=== PATIENT | female | born 2000 | race Caucasian/White ===

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

== ENCOUNTER 2019-01-21 00:52 | Emergency (ER) | payer MEDICAID ==
[~2019-01-21] VITALS: Ht 162.6 cm; Wt 69.4 kg
[2019-01-21] MEDS ORDERED: IV NS 0.9% 1,000 ML BAG IV ONE (01:30)
--- NOTE | 2019-01-21 01:30 | NUR ---
PT PRESENTED TO THE ER WITH A C/O LOWER ABD PAIN. PT STATED THAT SHE HAS A HX OF ENDOMETRIOSIS AND HAS NOT STARTED TAKING THE CONTROL THAT HER PMD PRESCRIBED. PT WAS PLACED ON THE MONITOR AND CONTINUOUS PULSE OX.
[2019-01-21] MEDS ORDERED: ONDANSETRON HCL/PF 4 MG/2 ML VIAL ONE (01:47)
[2019-01-21 01:48] LABS: BASOPHILS % (AUTO) 0.4 % (0.0-2.0); EOSINOPHILS % (AUTO) 0.5 % (0.0-6.0); HEMATOCRIT 40 % (33-45); HEMOGLOBIN 13.6 g/dL (11.5-14.8); LYMPHOCYTES # (AUTO) 1.7 /CMM (0.8-4.8); LYMPHOCYTES % (AUTO) 18.8 % (20.0-44.0); MEAN CORPUSCULAR HGB CONC 34 g/dl (31.0-36.0); MEAN CORPUSCULAR VOLUME 85 fL (82-100); MONOCYTES # (AUTO) 0.8 /CMM (0.1-1.30); MONOCYTES % (AUTO) 9.6 % (2.0-12.0); NEUTROPHILS # (AUTO) 6.2 /CMM (1.8-8.9); NEUTROPHILS % (AUTO) 70.7 % (43.0-81.0); PLATELET COUNT (AUTO) 243 /CMM (150-450); RED BLOOD CELL COUNT(AUTO) 4.66 MIL/uL (4.0-5.2); WHITE BLOOD COUNT (AUTO) 8.8 K/uL (4.3-11.0)
[2019-01-21] MEDS ORDERED: MORPHINE SULFATE INJ 4 MG/ML DISP.SYRIN ONE (01:48)
[2019-01-21 01:53] LABS: CALCIUM, SERUM 9.1 mg/dL (8.5-10.1); CREATININE 0.7 mg/dL (0.6-1.3); POTASSIUM 3.6 mmol/L (3.5-5.1)
[2019-01-21 01:53] LABS: APPEARANCE,URINE Clear (CLEAR); BILIRUBIN,URINE SMALL (NEGATIVE); BLOOD, URINE Moderate Ery/uL (NEGATIVE); COLOR,URINE Yellow (YELLOW); KETONES,URINE 80 (NEGATIVE); LEUKOCYTE ESTERASE ,URINE Negative (NEGATIVE); NITRITE, URINE Negative (NEGATIVE); PROTEIN,URINE 30 mg/dl (NEGATIVE); UGLUCOSE Negative (NEGATIVE)
[2019-01-21] MEDS ORDERED: MORPHINE SULFATE INJ 10 MG/ML DISP.SYRIN IV ONE (02:00)
[2019-01-21] MEDS ORDERED: ONDANSETRON HCL/PF - ER 4 MG/2 ML VIAL IV ONE (02:00)
[2019-01-21 02:08] LABS: BACTERIA,URINE Few /HPF (None Seen); MUCUS,URINE Few /LPF (None Seen); SQUAMOUS EPITHELIAL CELL,UR Few /HPF (None Seen)
[2019-01-21] MEDS ORDERED: KETOROLAC TROMETHAMINE INJ 30 MG/ML VIAL IV ONE (02:30)
--- NOTE | 2019-01-21 02:59 | NUR ---
DR RAMOS IS AT THE BEDSIDE SPEAKING TO THE PT AND HER FAMILY. IV removed. Catheter intact and site benign. Pressure and 4x4 applied to site. No bleeding noted. Patient discharged to home in stable condition. Written and verbal after care instructions given. Patient verbalizes understanding of instruction AND RX. PT AMBULATED OUT WITH A STEADY GAIT. VSS. NAD NOTED.
[2019-01-21 03:33] VITALS: BP 142/98
== END 2019-01-21 02:59 | disposition home or self-care (01) ==
LOC: ER 00:54
DX: N80.9 Endometriosis, unspecified (principal)
CPT/HCPCS: 36415; 80048; 81001; 84703; 85025; 87086; 96374; 96375; 99283; J2270; J2405; J7030; 81000-TC

== ENCOUNTER 2019-02-09 22:19 | Emergency (ER) | payer MEDICAID ==
[~2019-02-09] VITALS: Ht 162.6 cm; Wt 63.5 kg
--- NOTE | 2019-02-09 23:10 | NUR ---
URINE COLLECTED AND SENT TO LAB
[2019-02-09] MEDS ORDERED: KETOROLAC TROMETHAMINE INJ 30 MG/ML VIAL ONE (23:25)
[2019-02-09] MEDS ORDERED: IV NS 0.9% 1,000 ML BAG IV ONE (23:30)
[2019-02-09] MEDS ORDERED: KETOROLAC TROMETHAMINE INJ 30 MG/ML VIAL IV ONE (23:30)
--- NOTE | 2019-02-09 23:34 | NUR ---
BIBS FROM HOME C/C LOWER ABD PAIN SINCE AM, RECENTLY DIAGNOSED W/ ENDOMETRIOSIS. [id number]
[2019-02-09 23:35] LABS: BASOPHILS % (AUTO) 0.4 % (0.0-2.0); EOSINOPHILS % (AUTO) 0.2 % (0.0-6.0); HEMATOCRIT 41 % (33-45); LYMPHOCYTES % (AUTO) 10.5 % (20.0-44.0); MEAN CORPUSCULAR HGB CONC 34 g/dl (31.0-36.0); MEAN CORPUSCULAR VOLUME 85 fL (82-100); MONOCYTES # (AUTO) 0.9 /CMM (0.1-1.30); MONOCYTES % (AUTO) 8.6 % (2.0-12.0); NEUTROPHILS # (AUTO) 7.9 /CMM (1.8-8.9); NEUTROPHILS % (AUTO) 80.3 % (43.0-81.0); PLATELET COUNT (AUTO) 215 /CMM (150-450); RED BLOOD CELL COUNT(AUTO) 4.88 MIL/uL (4.0-5.2); WHITE BLOOD COUNT (AUTO) 9.9 K/uL (4.3-11.0)
[2019-02-09 23:42] LABS: CALCIUM, SERUM 9.2 mg/dL (8.5-10.1); CREATININE 0.6 mg/dL (0.6-1.3); POTASSIUM 3.7 mmol/L (3.5-5.1)
[2019-02-09 23:45] LABS: APPEARANCE,URINE Clear (CLEAR); BILIRUBIN,URINE SMALL (NEGATIVE); BLOOD, URINE Negative Ery/uL (NEGATIVE); COLOR,URINE Yellow (YELLOW); KETONES,URINE 40 (NEGATIVE); LEUKOCYTE ESTERASE ,URINE Negative (NEGATIVE); NITRITE, URINE Negative (NEGATIVE); PROTEIN,URINE Negative (NEGATIVE); UGLUCOSE Negative (NEGATIVE); UROBILINOGEN,URINE 0.2 EU/dL (0.2)
[2019-02-10 00:10] LABS: BACTERIA,URINE Few /HPF (None Seen); RBC,URINE 0-2 /HPF (0-2)
[2019-02-10 00:11] LABS: SQUAMOUS EPITHELIAL CELL,UR Few /HPF (None Seen)
--- NOTE | 2019-02-10 00:46 | NUR ---
Patient discharged to home in stable condition. Written and verbal after care instructions given. Patient verbalizes understanding of instruction.
[2019-02-10 00:47] VITALS: BP 128/77
== END 2019-02-10 00:48 | disposition home or self-care (01) ==
LOC: ER 22:24
DX: N80.3 Endometriosis of pelvic peritoneum (principal); R10.2 Pelvic and perineal pain; R50.9 Fever, unspecified; R00.0 Tachycardia, unspecified
CPT/HCPCS: 36415; 80048; 81001; 84703; 85025; 96374; 99283; J1885; J7030; 81000-TC

== ENCOUNTER 2019-04-01 19:29 | Emergency (ER) | payer MEDICAID ==
[~2019-04-01] VITALS: Ht 162.6 cm; Wt 68.0 kg
--- NOTE | 2019-04-01 20:10 | NUR ---
BIBSELF C/O PELVIC PAIN X1 DAY. ALSO C/O HEADACHE, NAUSEA, AND DYSURIA. PT AAOX4. RESPIRATIONS EVEN AND UNLABORED. SKIN INTACT. NO ACUTE DISTRESS NOTED AT THIS TIME. WILL CONTINUE TO MONITOR
[2019-04-01] MEDS ORDERED: ONDANSETRON HCL/PF 4 MG/2 ML VIAL ONE (20:28)
[2019-04-01] MEDS ORDERED: MORPHINE SULFATE INJ 4 MG/ML DISP.SYRIN ONE (20:29)
--- NOTE | 2019-04-01 20:41 | NUR ---
IV INITIATED L AC 20G. LABS DRAWN FROM SITE. TECHNOLOGY COORDINATOR AT BEDSIDE FOR COLLECTION. IV INTACT AND PATENT, PLACED ON SALINE LOCK
--- NOTE | 2019-04-01 20:42 | NUR ---
PT AMBULATORY TO RESTROOM
[2019-04-01 20:43] LABS: BASOPHILS % (AUTO) 0.4 % (0.0-2.0); EOSINOPHILS % (AUTO) 0.1 % (0.0-6.0); HEMATOCRIT 42 % (33-45); HEMOGLOBIN 14.4 g/dL (11.5-14.8); LYMPHOCYTES % (AUTO) 8.6 % (20.0-44.0); MEAN CORPUSCULAR HGB CONC 34 g/dl (31.0-36.0); MEAN CORPUSCULAR VOLUME 85 fL (82-100); MONOCYTES % (AUTO) 8.5 % (2.0-12.0); NEUTROPHILS # (AUTO) 9.7 /CMM (1.8-8.9); NEUTROPHILS % (AUTO) 82.4 % (43.0-81.0); PLATELET COUNT (AUTO) 240 /CMM (150-450); RED BLOOD CELL COUNT(AUTO) 4.98 MIL/uL (4.0-5.2); WHITE BLOOD COUNT (AUTO) 11.8 K/uL (4.3-11.0)
--- NOTE | 2019-04-01 20:45 | NUR ---
PT UNABLE TO PROVIDE URINE SAMPLE AT THIS TIME. ER PA AWARE
[2019-04-01] MEDS: IV NS 0.9% 1,000 ML BAG IV ONE (20:46)
[2019-04-01] MEDS: ONDANSETRON HCL/PF 4 MG/2 ML VIAL IVP ONE (20:47)
[2019-04-01] MEDS: MORPHINE SULFATE INJ 2 MG/ML DISP.SYRIN IV ONE (20:49)
[2019-04-01 21:00] LABS: CALCIUM, SERUM 9.5 mg/dL (8.5-10.1); CREATININE 0.7 mg/dL (0.6-1.3); POTASSIUM 3.6 mmol/L (3.5-5.1)
--- NOTE | 2019-04-01 21:38 | NUR ---
PT UNABLE TO PROVIDE URINE SAMPLE AT THIS TIME. ER PA AWARE
[2019-04-01 22:11] LABS: APPEARANCE,URINE SL CLOUDY (CLEAR); BILIRUBIN,URINE 1+ (NEGATIVE); BLOOD, URINE 3+ Ery/uL (NEGATIVE); COLOR,URINE YELLOW (YELLOW); KETONES,URINE 2+ (NEGATIVE); LEUKOCYTE ESTERASE ,URINE NEGATIVE (NEGATIVE); NITRITE, URINE NEGATIVE (NEGATIVE); PH,URINE 5.5 (5.0-8.0); PROTEIN,URINE TRACE mg/dl (NEGATIVE); UGLUCOSE NEGATIVE (NEGATIVE); UROBILINOGEN,URINE 0.2 EU/dL (0.2)
--- NOTE | 2019-04-01 22:18 | NUR ---
PT OK TO DISCHARGE PER DANISH REECE. IV removed. Catheter intact and site benign. Pressure and 4x4 applied to site. No bleeding noted.Patient discharged to home in stable condition. Written and verbal after care instructions given. Patient verbalizes understanding of instruction.Patient is awake and alert to self, day, and place. PT ambulatory with a steady gait
[2019-04-01 22:19] VITALS: BP 124/71
[2019-04-01 22:20] LABS: BACTERIA,URINE None seen /HPF (None Seen); RBC,URINE 0-2 /HPF (0-2); SQUAMOUS EPITHELIAL CELL,UR Moderate /HPF (None Seen); URINE AMORPHOUS URATE Few /HPF (None Seen)
[2019-04-01 22:21] LABS: MUCUS,URINE Moderate /LPF (None Seen)
== END 2019-04-01 22:20 | disposition home or self-care (01) ==
LOC: ER 19:29
DX: N80.9 Endometriosis, unspecified (principal)
CPT/HCPCS: 36415; 80048; 81001; 84703; 85025; 87086; 96374; 96375; 99283; J2270; J2405; J7030; 81000-TC

== ENCOUNTER 2019-06-26 22:56 | Emergency (ER) | payer MEDICAID ==
[~2019-06-26] VITALS: Ht 162.6 cm; Wt 68.0 kg
--- NOTE | 2019-06-26 23:14 | NUR ---
PT PRESENTED TO THE ER WITH A C/O LOWER ABD SHARP PAIN FEMALE. PT STATED THAT SHE HAS A HX OF ENDOMETRIOSIS. URINE SAMPLE OBTAINED AND SENT TO LAB.
[2019-06-26] MEDS ORDERED: KETOROLAC TROMETHAMINE INJ 60 MG/2 ML VIAL IM ONE ×2 (23:21→23:30)
[2019-06-26] MEDS ORDERED: TRAMADOL HCL 50 MG TABLET ONE (23:21)
[2019-06-26] MEDS ORDERED: ONDANSETRON 4 MG TAB.RAPDIS ONE (23:22)
[2019-06-26] MEDS ORDERED: TRAMADOL HCL 50 MG TABLET PO ONE (23:30)
[2019-06-26] MEDS ORDERED: ONDANSETRON 4 MG TAB.RAPDIS SL ONE (23:30)
[2019-06-27] MEDS ORDERED: MORPHINE SULFATE INJ 4 MG/ML DISP.SYRIN ONE (00:09)
--- NOTE | 2019-06-27 00:10 | NUR ---
PT IS C/O ABD PAIN 02/21. PT STATED THAT THE PAIN MEDICATION DID NOT WORK. MD HAS NEW ORDERS.
[2019-06-27] MEDS ORDERED: MORPHINE SULFATE INJ 2 MG/ML DISP.SYRIN IV ONE (00:30)
[2019-06-27] MEDS ORDERED: IV NS 0.9% 1,000 ML BAG IV ONE (00:30)
--- NOTE | 2019-06-27 01:20 | NUR ---
IV removed. Catheter intact and site benign. Pressure and 4x4 applied to site. No bleeding noted. Patient discharged to home in stable condition. Written and verbal after care instructions given. Patient verbalizes understanding of instruction AND RX. PT WAS TOLD NOT TO START THE MEDICATION UNTIL AFTER HER NEXT PERIOD FINISHED. PT AMBULATED OUT WITH A STEADY GAIT. VSS.
[2019-06-27 01:22] VITALS: BP 128/88
== END 2019-06-27 01:20 | disposition home or self-care (01) ==
LOC: ER 22:59
DX: N80.9 Endometriosis, unspecified (principal)
CPT/HCPCS: 96372; 96374; 99283; J1885; J2270; J7030; Q0162

== ENCOUNTER 2019-10-28 23:05 | Emergency (ER) | payer MEDICAID ==
[~2019-10-28] VITALS: Ht 162.6 cm; Wt 68.0 kg
[2019-10-28] MEDS ORDERED: MORPHINE SULFATE INJ 4 MG/ML DISP.SYRIN ONE (23:21)
[2019-10-28] MEDS ORDERED: ONDANSETRON HCL/PF 4 MG/2 ML VIAL ONE (23:21)
--- NOTE | 2019-10-28 23:22 | NUR ---
PATIENT CAME TO ER BED 3 C/O LOWER ABDOMINAL PAIN. PATIENT HAS A HISTORY OF ENDOMETRIOSIS 4x YEARS AGO. PATIENT STATES THAT SHE HAD MISSED HER CONTROL PILL. PATIENT IS CURRENTLY ON HER PERIOD. AAOX4. NO SOB. BREATHING EVENLY AND UNLABORED ON ROOM AIR. CONNECTED TO MONITOR.
--- NOTE | 2019-10-28 23:23 | NUR ---
BLOOD DRAWN AND SENT TO LAB FOR TESTING.
[2019-10-28] MEDS ORDERED: IV NS 0.9% 1,000 ML BAG IV ONE (23:30)
[2019-10-28] MEDS ORDERED: ONDANSETRON HCL/PF 4 MG/2 ML VIAL IVP ONE (23:30)
[2019-10-28] MEDS ORDERED: MORPHINE SULFATE INJ 2 MG/ML DISP.SYRIN IV ONE (23:30)
[2019-10-28 23:32] LABS: BASOPHILS # (AUTO) 0.1 /CMM (0.0-0.2); BASOPHILS % (AUTO) 0.9 % (0.0-2.0); EOSINOPHILS % (AUTO) 0.3 % (0.0-6.0); HEMATOCRIT 43 % (33-45); HEMOGLOBIN 14.8 g/dL (11.5-14.8); LYMPHOCYTES # (AUTO) 1.1 /CMM (0.8-4.8); LYMPHOCYTES % (AUTO) 9.2 % (20.0-44.0); MEAN CORPUSCULAR HGB CONC 34 g/dl (31.0-36.0); MEAN CORPUSCULAR VOLUME 86 fL (82-100); MONOCYTES % (AUTO) 8.3 % (2.0-12.0); NEUTROPHILS # (AUTO) 9.4 /CMM (1.8-8.9); NEUTROPHILS % (AUTO) 81.3 % (43.0-81.0); PLATELET COUNT (AUTO) 218 /CMM (150-450); RED BLOOD CELL COUNT(AUTO) 5.07 MIL/uL (4.0-5.2); WHITE BLOOD COUNT (AUTO) 11.5 K/uL (4.3-11.0)
[2019-10-28 23:39] LABS: CALCIUM, SERUM 9.3 mg/dL (8.5-10.1); CREATININE 0.9 mg/dL (0.6-1.3); POTASSIUM 3.9 mmol/L (3.5-5.1)
[2019-10-29 00:43] VITALS: BP 128/79
--- NOTE | 2019-10-29 00:43 | NUR ---
Patient discharged to home in stable condition. Written and verbal after care instructions given. Patient verbalizes understanding of instruction.
--- NOTE | 2019-10-29 00:43 | NUR ---
IV removed. Catheter intact and site benign. Pressure and 4x4 applied to site. No bleeding noted.
== END 2019-10-29 00:43 | disposition home or self-care (01) ==
LOC: ER 23:09
DX: N80.9 Endometriosis, unspecified (principal)
CPT/HCPCS: 80048; 85025; 96374; 96375; 99284; J2270; J2405; J7030; 36415

== ENCOUNTER 2020-03-01 22:11 | Emergency (ER) | payer MEDICAID ==
[~2020-03-01] VITALS: Ht 162.6 cm; Wt 65.8 kg
[2020-03-01 22:14] VITALS: BP 132/64
--- NOTE | 2020-03-01 22:25 | NUR ---
PATIENT CAME TO ER BED 9 C/O LEFT SHOULDER PAIN RADIATING TO THE LEFT CHEST PAIN SINCE YESTERDAY. PATIENT STATES SHE HAD REACHED FOR SOMETHING YESTERDAY WITH HER LEFT ARM AND HAD STRAINED HER MUSCLE. PATIENT IS AAOX4. NO SOB. BREATHING EVENLY AND UNLABORED ON ROOM AIR. PATIENT CURRENTLY DOES NOT WANT ANY PAIN MEDICATIONS.
--- NOTE | 2020-03-01 23:30 | NUR ---
PATIENT SIGNED WAIVER FORM.
--- NOTE | 2020-03-01 23:51 | NUR ---
XRAY AT BEDSIDE.
== END 2020-03-02 00:10 | disposition home or self-care (01) ==
LOC: ER 22:14
DX: M94.0 Chondrocostal junction syndrome [Tietze] (principal)
CPT/HCPCS: 71045-TC

== ENCOUNTER 2020-03-03 16:26 | Emergency (ER) | payer MEDICAID ==
[~2020-03-03] VITALS: Ht 162.6 cm; Wt 65.8 kg
--- NOTE | 2020-03-03 16:35 | NUR ---
c/o non radiating left sided chest pain, +sharp, denies sob, trauma. Patient a/ox4, breathing even and unlabored, no sob noted. Patient stated she "feels chest pain when she breathes in" but denies pain at this time. Attached to the entry level receptionist. Dr. Mayberry at bedside for eval.
[2020-03-03 17:03] LABS: BASOPHILS % (AUTO) 0.6 % (0.0-2.0); EOSINOPHILS % (AUTO) 0.7 % (0.0-6.0); HEMATOCRIT 42 % (33-45); LYMPHOCYTES # (AUTO) 1.5 /CMM (0.8-4.8); LYMPHOCYTES % (AUTO) 22.3 % (20.0-44.0); MEAN CORPUSCULAR HGB CONC 34 g/dl (31.0-36.0); MEAN CORPUSCULAR VOLUME 87 fL (82-100); MONOCYTES # (AUTO) 0.9 /CMM (0.1-1.30); MONOCYTES % (AUTO) 13.5 % (2.0-12.0); NEUTROPHILS # (AUTO) 4.2 /CMM (1.8-8.9); NEUTROPHILS % (AUTO) 62.9 % (43.0-81.0); PLATELET COUNT (AUTO) 226 /CMM (150-450); WHITE BLOOD COUNT (AUTO) 6.7 K/uL (4.3-11.0)
[2020-03-03 17:12] LABS: CALCIUM, SERUM 9.8 mg/dL (8.5-10.1); CARBON DIOXIDE 26 mmol/L (21-32); CHLORIDE 102 mmol/L (98-107); CREATININE 0.6 mg/dL (0.6-1.3); GLUCOSE 91 mg/dL (74-106); POTASSIUM 3.8 mmol/L (3.5-5.1); SODIUM SERUM 137 mmol/L (136-145); UREA NITROGEN, BLOOD 9 mg/dL (7-18)
--- NOTE | 2020-03-03 17:21 | NUR ---
brought to ct.
[2020-03-03] MEDS ORDERED: IOHEXOL-350 100 ML VIAL IV ONE (17:22)
[2020-03-03] MEDS ORDERED: CT SWABBABLE VALVE TRANS SET 1 EA INFUS.SET MC ONE (17:23)
[2020-03-03] MEDS ORDERED: IV NS 0.9% 250 ML IV ONE (17:23)
[2020-03-03] MEDS: KETOROLAC TROMETHAMINE INJ 30 MG/ML VIAL IV ONE (18:26)
--- NOTE | 2020-03-03 18:26 | NUR ---
Patient a/ox4, breathing even and unlabored, no sob noted, ambulatory with steady gait, denies any complaints at this time. Needs attended. IV removed. Catheter intact and site benign. Pressure and 4x4 applied to site. No bleeding noted. Patient discharged to home in stable condition. Written and verbal after care instructions given. Patient verbalizes understanding of instruction.
[2020-03-03 18:28] VITALS: BP 130/82
== END 2020-03-03 18:29 | disposition home or self-care (01) ==
LOC: ER 16:29
DX: R07.81 Pleurodynia (principal); N80.9 Endometriosis, unspecified; R00.0 Tachycardia, unspecified
CPT/HCPCS: 36415; 71045; 71275; 80048; 84484; 85025; 93005 ×3; 99285; J7050; Q9967

== ENCOUNTER 2022-03-08 20:12 | Emergency (ER) | payer MEDICAID ==
[~2022-03-08] VITALS: Ht 162.6 cm; Wt 65.8 kg
[~2022-03-08 20:12] MED LIST: AMOX-430 PO
[2022-03-08] MEDS ORDERED: MORPHINE SULFATE INJ 2 MG/ML DISP.SYRIN ONE (20:38)
[2022-03-08] MEDS ORDERED: ONDANSETRON 4 MG TAB.RAPDIS ONE (20:38)
--- NOTE | 2022-03-08 20:41 | NUR ---
PATIENT BIBSISTER C/O PELVIC PAIN X 1 NIGHT FELT WORSE TODAY. PATIENT IS A/O X 4, RR EVEN AND UNLABORED NO SOB NOTED. PATIENT TAKEN TO ER BED 16. CONNECTED TO MONITORS.
--- NOTE | 2022-03-08 20:42 | NUR ---
UNABLE TO PROVIDE URINE AT THIS TIME
--- NOTE | 2022-03-08 20:44 | NUR ---
US AT BEDSIDE
[2022-03-08] MEDS ORDERED: ONDANSETRON 4 MG TAB.RAPDIS SL ONE (21:00)
[2022-03-08] MEDS ORDERED: MORPHINE SULFATE INJ 2 MG/ML DISP.SYRIN IM ONE (21:00)
--- NOTE | 2022-03-08 21:13 | NUR ---
20G IV ESTABLISHED RAC. BLOOD DRAWN AND SENT TO LAB.
--- NOTE | 2022-03-08 21:13 | NUR ---
US TECH AT BEDSIDE
[2022-03-08] MEDS ORDERED: DICYCLOMINE HCL INJ 20 MG/2 ML AMPUL IM ONE ×2 (21:14→21:30)
[2022-03-08 21:19] LABS: BASOPHILS % (AUTO) 0.3 % (0.0-2.0); EOSINOPHILS % (AUTO) 0.2 % (0.0-6.0); HEMATOCRIT 40 % (33-45); HEMOGLOBIN 13.6 g/dL (11.5-14.8); LYMPHOCYTES # (AUTO) 1.1 K/uL (0.8-4.8); MEAN CORPUSCULAR HGB CONC 34 g/dl (31.0-36.0); MEAN CORPUSCULAR VOLUME 87 fL (82-100); MONOCYTES # (AUTO) 0.8 K/uL (0.1-1.30); MONOCYTES % (AUTO) 8.2 % (2.0-12.0); NEUTROPHILS # (AUTO) 8.1 K/uL (1.8-8.9); NEUTROPHILS % (AUTO) 80.3 % (43.0-81.0); PLATELET COUNT (AUTO) 228 K/uL (150-450); RED BLOOD CELL COUNT(AUTO) 4.62 MIL/uL (4.0-5.2); WHITE BLOOD COUNT (AUTO) 10.1 K/uL (4.3-11.0)
[2022-03-08 21:36] LABS: CREATININE 0.7 mg/dL (0.6-1.3); POTASSIUM 3.3 mmol/L (3.5-5.1)
[2022-03-08 21:41] LABS: ALBUMIN 3.5 g/dL (3.4-5.0); BILIRUBIN,DIRECT 0.2 mg/dL (0.0-0.2); BILIRUBIN,TOTAL 0.9 mg/dL (0.2-1.0)
--- NOTE | 2022-03-08 21:55 | NUR ---
URINE COLLECTED AND SENT TO LAB
[2022-03-08 22:00] LABS: BILIRUBIN,URINE SMALL (NEGATIVE); COLOR,URINE YELLOW (YELLOW); LEUKOCYTE ESTERASE ,URINE NEGATIVE (NEGATIVE); NITRITE, URINE NEGATIVE (NEGATIVE); PROTEIN,URINE NEGATIVE (NEGATIVE); UGLUCOSE NEGATIVE (NEGATIVE)
[2022-03-08 22:10] LABS: BACTERIA,URINE None seen /HPF (None Seen); RBC,URINE 0-2 /HPF (0-2); WBC,URINE 0-2 /HPF (0-3)
[2022-03-08] MEDS ORDERED: ONDA4TAB5 PO (22:24)
[2022-03-08 23:06] VITALS: BP 132/78
--- NOTE | 2022-03-08 23:06 | NUR ---
Patient discharged to home in stable condition. Written and verbal after care instructions given. Patient verbalizes understanding of instruction.IV removed. Catheter intact and site benign. Pressure and 4x4 applied to site. No bleeding noted. Pt ambulatory with a steady gait
== END 2022-03-08 23:07 | disposition home or self-care (01) ==
LOC: ER 20:12
DX: K52.9 Noninfective gastroenteritis and colitis, unspecified (principal)
CPT/HCPCS: 99284; 76700; 96372 ×2; 76856; 85025; 80048; 83690; 80076; 84703; 81001; 36415; J0500; Q0162; J2270

== ENCOUNTER 2023-12-16 00:37 | Emergency (ER) | payer SELFPAY ==
[~2023-12-16] VITALS: Ht 162.6 cm; Wt 63.5 kg
[~2023-12-16 00:37] MED LIST changes: +ONDA4TAB5 PO
[2023-12-16] MEDS ORDERED: ONDANSETRON 4 MG TAB.RAPDIS SL ONE (01:00)
[2023-12-16] MEDS ORDERED: HYDROMORPHONE 1 MG/1 ML DISP.SYRIN IM ONE (01:00)
[2023-12-16] MEDS ORDERED: HYDROMORPHONE 1 MG/1 ML DISP.SYRIN ONE ×2 (01:11→02:41)
[2023-12-16] MEDS ORDERED: ONDANSETRON HCL/PF 4 MG/2 ML VIAL ONE (01:11)
[2023-12-16 01:24] LABS: BASOPHILS % (AUTO) 0.5 % (0.0-2.0); EOSINOPHILS % (AUTO) 0.3 % (0.0-6.0); HEMATOCRIT 37 % (33-45); HEMOGLOBIN 12.6 g/dL (11.5-14.8); LYMPHOCYTES # (AUTO) 0.8 K/uL (0.8-4.8); LYMPHOCYTES % (AUTO) 7.9 % (20.0-44.0); MEAN CORPUSCULAR HEMOGLOBIN 29 PG (26.0-33.0); MEAN CORPUSCULAR HGB CONC 34 g/dl (31.0-36.0); MEAN CORPUSCULAR VOLUME 86 fL (82-100); MONOCYTES # (AUTO) 0.6 K/uL (0.1-1.30); MONOCYTES % (AUTO) 6.2 % (2.0-12.0); NEUTROPHILS # (AUTO) 8.2 K/uL (1.8-8.9); NEUTROPHILS % (AUTO) 85.1 % (43.0-81.0); PLATELET COUNT (AUTO) 241 K/uL (150-450); RED BLOOD CELL COUNT(AUTO) 4.36 MIL/uL (4.0-5.2); WHITE BLOOD COUNT (AUTO) 9.6 K/uL (4.3-11.0)
[2023-12-16] MEDS: ONDANSETRON HCL/PF - ER 4 MG/2 ML VIAL IV ONE (01:30)
[2023-12-16 01:31] LABS: CALCIUM, SERUM 9.8 mg/dL (8.5-10.1); CREATININE 0.6 mg/dL (0.6-1.3); POTASSIUM 3.3 mmol/L (3.5-5.1)
[2023-12-16] MEDS: HYDROMORPHONE 1 MG/1 ML DISP.SYRIN IV ONE ×2 (01:31→02:48)
[2023-12-16] MEDS ORDERED: HYDR-3980 PO (04:39)
[2023-12-16] MEDS ORDERED: ONDA4TAB11 PO (04:39)
[2023-12-16 05:01] VITALS: BP 138/104; TEMP 98.4; O2SAT 97
== END 2023-12-16 05:02 | disposition home or self-care (01) ==
LOC: ER 00:40
DX: R10.2 Pelvic and perineal pain (principal); N80.9 Endometriosis, unspecified
CPT/HCPCS: 99285; 96374; 76856; 96375; 96376; 85025; 80048; 36415; 84702; J2405 ×2; J1170 ×2

== ENCOUNTER 2024-05-16 16:58 | Emergency (ER) | payer OTHER ==
[~2024-05-16] VITALS: Ht 154.9 cm; Wt 59.9 kg
[~2024-05-16 16:58] MED LIST changes: +HYDR-3980 PO; +ONDA4TAB11 PO
[2024-05-16 17:04] VITALS: TEMP 98.3
[2024-05-16] MEDS ORDERED: ONDANSETRON HCL/PF 4 MG/2 ML VIAL ONE (17:48)
[2024-05-16] MEDS ORDERED: MORPHINE SULFATE INJ 4 MG/ML DISP.SYRIN ONE (17:49)
[2024-05-16 17:53] LABS: BASOPHILS % (AUTO) 0.4 % (0.0-2.0); EOSINOPHILS % (AUTO) 0.4 % (0.0-6.0); HEMATOCRIT 35 % (33-45); HEMOGLOBIN 11.9 g/dL (11.5-14.8); LYMPHOCYTES # (AUTO) 0.8 K/uL (0.8-4.8); LYMPHOCYTES % (AUTO) 10.8 % (20.0-44.0); MEAN CORPUSCULAR HEMOGLOBIN 29 PG (26.0-33.0); MEAN CORPUSCULAR HGB CONC 34 g/dl (31.0-36.0); MEAN CORPUSCULAR VOLUME 86 fL (82-100); MONOCYTES # (AUTO) 0.7 K/uL (0.1-1.30); MONOCYTES % (AUTO) 9.4 % (2.0-12.0); NEUTROPHILS # (AUTO) 5.5 K/uL (1.8-8.9); PLATELET COUNT (AUTO) 196 K/uL (150-450); RED BLOOD CELL COUNT(AUTO) 4.09 MIL/uL (4.0-5.2); RED CELL DISTRIBUTION WIDTH 13.6 % (11.5-15.0)
[2024-05-16] MEDS: ONDANSETRON HCL/PF 4 MG/2 ML VIAL IVP ONE (17:54)
[2024-05-16] MEDS: MORPHINE SULFATE INJ 2 MG/ML DISP.SYRIN IV ONE (17:58)
[2024-05-16 18:04] LABS: APPEARANCE,URINE CLEAR (CLEAR); BILIRUBIN,URINE NEGATIVE (NEGATIVE); BLOOD, URINE 3+ Ery/uL (NEGATIVE); COLOR,URINE YELLOW (YELLOW); KETONES,URINE 1+ mg/dL (NEGATIVE); LEUKOCYTE ESTERASE ,URINE NEGATIVE (NEGATIVE); NITRITE, URINE NEGATIVE (NEGATIVE); PROTEIN,URINE NEGATIVE (NEGATIVE); UGLUCOSE NEGATIVE (NEGATIVE)
[2024-05-16 18:05] LABS: ADD URINE CULTURE NO; BACTERIA,URINE Rare /HPF (None Seen); RBC,URINE 51-80 /HPF (0-2); SQUAMOUS EPITHELIAL CELL,UR Few /HPF (None Seen)
[2024-05-16 18:12] LABS: CALCIUM, SERUM 8.8 mg/dL (8.5-10.1); CREATININE 0.6 mg/dL (0.6-1.3); POTASSIUM 3.6 mmol/L (3.5-5.1)
[2024-05-16] MEDS ORDERED: IBUP-1957 PO (18:50)
[2024-05-16] MEDS ORDERED: ACET-73 PO (18:50)
[2024-05-16 19:03] VITALS: BP 120/75; O2SAT 98
== END 2024-05-16 19:03 | disposition home or self-care (01) ==
LOC: ER 16:58
DX: N80.9 Endometriosis, unspecified (principal); R10.2 Pelvic and perineal pain; Z79.899 Other long term (current) drug therapy
CPT/HCPCS: 99285; 96374; 76856; 96375; 85025; 80048; 81001; 36415; 84702; J2270; J2405

== ENCOUNTER 2024-08-04 18:55 | Emergency (ER) | payer OTHER ==
[~2024-08-04] VITALS: Ht 157.5 cm; Wt 59.4 kg
[~2024-08-04 18:55] MED LIST changes: +ACET-73 PO; +IBUP-1957 PO
[2024-08-04 19:01] VITALS: TEMP 98.2
[2024-08-04] MEDS ORDERED: KETOROLAC TROMETHAMINE 15 MG/ML VIAL ONE (20:34)
[2024-08-04] MEDS ORDERED: ONDANSETRON 4 MG TAB.RAPDIS ONE (20:35)
[2024-08-04] MEDS: KETOROLAC TROMETHAMINE 15 MG/ML VIAL IM ONE (20:54)
[2024-08-04] MEDS: ONDANSETRON 4 MG TAB.RAPDIS SL ONE (20:54)
[2024-08-04] MEDS ORDERED: ONDA4TAB11 PO (21:28)
[2024-08-04 21:40] VITALS: BP 121/80; O2SAT 99
== END 2024-08-04 21:40 | disposition home or self-care (01) ==
LOC: ER 18:56
DX: N94.6 Dysmenorrhea, unspecified (principal); R11.0 Nausea
CPT/HCPCS: 99283; 96372; J1885; Q0162

== ENCOUNTER 2024-11-30 03:08 | Emergency (ER) | payer OTHER ==
[~2024-11-30] VITALS: Ht 162.6 cm; Wt 57.6 kg
[2024-11-30] MEDS ORDERED: ONDANSETRON HCL/PF 4 MG/2 ML VIAL ONE (03:45)
[2024-11-30 03:46] LABS: BASOPHILS % (AUTO) 0.3 % (0.0-2.0); EOSINOPHILS # (AUTO) 0.1 K/uL (0.0-0.7); EOSINOPHILS % (AUTO) 0.6 % (0.0-6.0); HEMATOCRIT 39 % (33-45); HEMOGLOBIN 13.2 g/dL (11.5-14.8); MEAN CORPUSCULAR HEMOGLOBIN 30 PG (26.0-33.0); MEAN CORPUSCULAR HGB CONC 34 g/dl (31.0-36.0); MEAN CORPUSCULAR VOLUME 87 fL (82-100); MONOCYTES # (AUTO) 0.6 K/uL (0.1-1.30); MONOCYTES % (AUTO) 5.9 % (2.0-12.0); NEUTROPHILS # (AUTO) 8.9 K/uL (1.8-8.9); NEUTROPHILS % (AUTO) 84.2 % (43.0-81.0); PLATELET COUNT (AUTO) 233 K/uL (150-450); RED BLOOD CELL COUNT(AUTO) 4.46 MIL/uL (4.0-5.2); RED CELL DISTRIBUTION WIDTH 12.9 % (11.5-15.0); WHITE BLOOD COUNT (AUTO) 10.6 K/uL (4.3-11.0)
[2024-11-30] MEDS: IV NS 0.9% 1,000 ML BAG IV ONE (03:46)
[2024-11-30] MEDS: ONDANSETRON HCL/PF 4 MG/2 ML VIAL IVP ONE (03:46)
[2024-11-30 03:55] LABS: CALCIUM, SERUM 9.5 mg/dL (8.5-10.1); CREATININE 0.6 mg/dL (0.6-1.3); POTASSIUM 3.8 mmol/L (3.5-5.1)
[2024-11-30 04:01] LABS: ALBUMIN 3.7 g/dL (3.4-5.0); BILIRUBIN,DIRECT 0.1 mg/dL (0.0-0.2); BILIRUBIN,TOTAL 0.4 mg/dL (0.2-1.0); TOTAL PROTEIN, SERUM 7.9 g/dL (6.4-8.2)
[2024-11-30] MEDS: ACETAMINOPHEN ES 500 MG TABLET PO ONE (04:06)
[2024-11-30] MEDS ORDERED: ACETAMINOPHEN ES 500 MG TABLET ONE (04:06)
[2024-11-30 04:12] LABS: INR 1.03 (0.91-1.10); PROTHROMBIN TIME 10.9 SECS (9.2-11.1)
[2024-11-30 04:34] LABS: APPEARANCE,URINE CLEAR (CLEAR); BILIRUBIN,URINE NEGATIVE (NEGATIVE); BLOOD, URINE 3+ Ery/uL (NEGATIVE); COLOR,URINE YELLOW (YELLOW); KETONES,URINE TRACE mg/dL (NEGATIVE); LEUKOCYTE ESTERASE ,URINE NEGATIVE (NEGATIVE); NITRITE, URINE NEGATIVE (NEGATIVE); PROTEIN,URINE NEGATIVE (NEGATIVE); UGLUCOSE NEGATIVE (NEGATIVE); UROBILINOGEN,URINE 0.2 EU/dL (0.2)
[2024-11-30 04:51] LABS: PREGNANCY TEST URINE QUAL NEGATIVE (NEGATIVE)
[2024-11-30 04:54] LABS: WBC,URINE 0-2 /HPF (0-3)
[2024-11-30 04:55] LABS: ADD URINE CULTURE NO; BACTERIA,URINE Few /HPF (None Seen); SQUAMOUS EPITHELIAL CELL,UR Few /HPF (None Seen)
[2024-11-30] MEDS: KETOROLAC TROMETHAMINE INJ 30 MG/ML VIAL IV ONE (05:00)
[2024-11-30] MEDS ORDERED: MORPHINE SULFATE INJ 4 MG/ML DISP.SYRIN ONE (05:08)
[2024-11-30] MEDS: MORPHINE SULFATE INJ 2 MG/ML DISP.SYRIN IV ONE (05:14)
[2024-11-30] MEDS ORDERED: KETOROLAC TROMETHAMINE INJ 30 MG/ML VIAL ONE (06:23)
[2024-11-30] MEDS ORDERED: POLY119P PO (06:58)
[2024-11-30 07:08] VITALS: BP 122/70; TEMP 98.9; O2SAT 99
== END 2024-11-30 07:08 | disposition home or self-care (01) ==
LOC: ER 03:10
DX: N80.9 Endometriosis, unspecified (principal); R10.2 Pelvic and perineal pain; R11.2 Nausea with vomiting, unspecified; R10.30 Lower abdominal pain, unspecified; Z79.899 Other long term (current) drug therapy
CPT/HCPCS: 99285; 74177; 96374; 76856; 96361; 96375; 85025; 80048; 80076; 84703; 81001; 36415; 85730; J2270; J2405; J7030; J7050; Q9967; J1885

== ENCOUNTER 2025-02-11 16:57 | Emergency (ER) | payer OTHER ==
[~2025-02-11] VITALS: Ht 162.6 cm; Wt 57.6 kg
[~2025-02-11 16:57] MED LIST changes: +POLY119P PO
[2025-02-11 17:04] VITALS: TEMP 97.9
[2025-02-11] MEDS ORDERED: ONDANSETRON HCL/PF 4 MG/2 ML VIAL ONE (17:22)
[2025-02-11] MEDS ORDERED: MORPHINE SULFATE INJ 4 MG/ML DISP.SYRIN ONE (17:22)
[2025-02-11] MEDS: IV NS 0.9% 1,000 ML BAG IV ONE (17:25)
[2025-02-11] MEDS: ONDANSETRON HCL/PF 4 MG/2 ML VIAL IVP ONE (17:25)
[2025-02-11] MEDS: MORPHINE SULFATE INJ 2 MG/ML DISP.SYRIN IV ONE (17:27)
[2025-02-11 17:39] LABS: PLATELET COUNT (AUTO) 256 K/uL (150-450); RED BLOOD CELL COUNT(AUTO) 4.71 MIL/uL (4.0-5.2); RED CELL DISTRIBUTION WIDTH 12.9 % (11.5-15.0); WHITE BLOOD COUNT (AUTO) 12.5 K/uL (4.3-11.0)
[2025-02-11 17:43] LABS: APPEARANCE,URINE SLIGHTLY CLOUDY (CLEAR); BLOOD, URINE 3+ Ery/uL (NEGATIVE); LEUKOCYTE ESTERASE ,URINE NEGATIVE (NEGATIVE); NITRITE, URINE NEGATIVE (NEGATIVE); PREGNANCY TEST URINE QUAL NEGATIVE (NEGATIVE); UGLUCOSE NEGATIVE (NEGATIVE)
[2025-02-11 17:49] LABS: ADD URINE CULTURE YES
[2025-02-11 18:03] LABS: CALCIUM, SERUM 8.8 mg/dL (8.5-10.1); CREATININE 0.6 mg/dL (0.6-1.3); SODIUM SERUM 139.0 mmol/L (136-145); UREA NITROGEN, BLOOD 6.0 mg/dL (7-18)
[2025-02-11 18:07] LABS: ASPARTATE AMINOTRANSFERASE 12.0 U/L (15-37); TOTAL PROTEIN, SERUM 8.2 g/dL (6.4-8.2)
[2025-02-11 19:09] VITALS: BP 120/85; O2SAT 99
== END 2025-02-11 19:05 | disposition home or self-care (01) ==
LOC: ER 17:02
DX: R10.2 Pelvic and perineal pain (principal); Z87.42 Personal history of other diseases of the female genital tract
CPT/HCPCS: 99285; 96374; 76856; 96361; 96375; 85025; 80048; 83690; 80076; 84703; 81001; 36415; J2270; J2405; J7030; 87086-TC

== ENCOUNTER 2025-05-22 18:00 | Emergency (ER) | payer OTHER ==
[~2025-05-22] VITALS: Ht 162.6 cm; Wt 55.3 kg
[2025-05-22 18:12] VITALS: TEMP 99.2
[2025-05-22 19:16] LABS: PLATELET COUNT (AUTO) 200 K/uL (150-450); RED BLOOD CELL COUNT(AUTO) 4.36 MIL/uL (4.0-5.2); RED CELL DISTRIBUTION WIDTH 13.6 % (11.5-15.0); WHITE BLOOD COUNT (AUTO) 6.0 K/uL (4.3-11.0)
[2025-05-22 19:22] LABS: CALCIUM, SERUM 8.8 mg/dL (8.5-10.1); CREATININE 0.7 mg/dL (0.6-1.3); SODIUM SERUM 139.0 mmol/L (136-145); UREA NITROGEN, BLOOD 5.0 mg/dL (7-18)
[2025-05-22 19:49] LABS: APPEARANCE,URINE SLIGHTLY CLOUDY (CLEAR); BLOOD, URINE 1+ Ery/uL (NEGATIVE); LEUKOCYTE ESTERASE ,URINE 2+ (NEGATIVE); NITRITE, URINE NEGATIVE (NEGATIVE); UGLUCOSE NEGATIVE (NEGATIVE)
[2025-05-22 19:52] LABS: PREGNANCY TEST URINE QUAL NEGATIVE (NEGATIVE)
[2025-05-22 19:57] LABS: ADD URINE CULTURE YES
[2025-05-22] MEDS ORDERED: DOXYCYCLINE HYCLATE (100 MG) 100 MG TABLET ONE (21:05)
[2025-05-22] MEDS: DOXYCYCLINE HYCLATE (100 MG) 100 MG TABLET PO ONE (21:08)
[2025-05-22] MEDS: CEFTRIAXONE 1 G in IV D5W 50 ML IV ONE (21:10)
[2025-05-22] MEDS ORDERED: LIDOCAINE /MPF 1% VIAL 5 ML VIAL ONE (21:17)
[2025-05-22] MEDS ORDERED: CEFTRIAXONE 1 G VIAL ONE (21:17)
[2025-05-22] MEDS: CEFTRIAXONE 1 G VIAL IM ONE (21:24)
[2025-05-22] MEDS ORDERED: DOXY100C2 PO (21:29)
[2025-05-22] MEDS ORDERED: FLUC150T PO (21:30)
[2025-05-22] MEDS ORDERED: IBUP-1490 PO (21:30)
[2025-05-22 21:39] VITALS: BP 125/85; O2SAT 98
[2025-05-25 17:11] LABS: CHLAMYDIA TRACHOMATIS NAA Negative (Negative); NEISSERIA GONORRHOEAE NAA Negative (Negative)
== END 2025-05-22 21:38 | disposition home or self-care (01) ==
LOC: ER 18:04
DX: O71.4 Obstetric high vaginal laceration alone (principal); N39.0 Urinary tract infection, site not specified; J03.90 Acute tonsillitis, unspecified
CPT/HCPCS: 99285; 76856; 96372; 85025; 80048; 87086; 84703; 81001; 36415; 87880; 87491; 87591; 87070; J0696 ×2; J7060; J3490; 86403-TC